=== PATIENT | male | born 1960 | race Caucasian/White ===

== ENCOUNTER 2017-09-07 15:28 | Emergency (ER) | payer MEDICAID, MEDICARE ==
[~2017-09-07] VITALS: Ht 167.6 cm; Wt 119.0 kg
[2017-09-07 15:32] VITALS: Ht 167.6 cm; Wt 119.0 kg
[2017-09-07] MEDS ORDERED: ONDANSETRON (ODT) 4 MG TAB ODT STA (16:48)
[2017-09-07] MEDS ORDERED: ACETAMINOPHEN 500 MG TAB PO STA (16:48)
--- NOTE | 2017-09-07 16:54 | ERD ---
ER Documentation Chief Complaint Chief Complaint fever , headcahe , cough x 2 days HPI This is a 56-year-old male who presents the emergency department today complaining of headache, watery eyes, sore throat, body aches, vomiting and cough for the past 2 days. States that he took ibuprofen at 10 AM. States he does not have a primary care doctor and does not know if he has any medical problems. Denies any chest pain, shortness of breath or abdominal pain. ROS All systems reviewed and are negative except as per history of present illness. Allergies Allergies: Coded Allergies: No Known Allergy (Unverified , 09/07/17) PMhx/Soc Medical and Surgical Hx: pt denies Medical Hx History of Surgery: Yes (Rt. Knee) Anesthesia Reaction: No Hx Neurological Disorder: No Hx Respiratory Disorders: No Hx Cardiac Disorders: No Hx Psychiatric Problems: No Hx Miscellaneous Medical Probl: No Hx Alcohol Use: No Hx Substance Use: No Hx Tobacco Use: No Smoking Status: Never smoker Physical Exam Vitals Vital Signs Date Time Temp Pulse Resp B/P Pulse Ox O2 Delivery O2 Flow Rate FiO2 09/07/17 15:32 101.0 89 18 134/69 99 Physical Exam Const: obese, NAD Head: Atraumatic Eyes: Normal Conjunctiva,. PERRLA. EOM intact. ENT: Ears TMs normal. Nose no drainage. Throat no erythema no exudate no vesicles Neck: Full range of motion..~ No meningismus. Resp: Clear to auscultation bilaterally Cardio: Regular rate and rhythm, no murmurs Abd: Soft, non tender, non distended. Normal bowel sounds Skin: No petechiae or rashes Back: No midline or flank tenderness Ext: No cyanosis, or edema Neur: Awake and alert cranial nerves II through XII intact. No gait ataxia. Psych: Normal Mood and Affect Result Diagram: 09/07/17194409/07/171944 Results 24 hrs Laboratory Tests Test 09/07/17 19:45 White Blood Count 8.310^3/ul Red Blood Count 4.9310^6/ul Hemoglobin 14.2g/dl Hematocrit 42.8% Mean Corpuscular Volume 86.8fl Mean Corpuscular Hemoglobin 28.8pg Mean Corpuscular Hemoglobin Concent 33.2g/dl Red Cell Distribution Width 14.9% Platelet Count 11838^3/UL Mean Platelet Volume 9.3fl Neutrophils % 76.9% Lymphocytes % 12.4% Monocytes % 9.8% Eosinophils % 0.5% Basophils % 0.2% Nucleated Red Blood Cells % 0.0/100WBC Neutrophils # 6.310^3/ul Lymphocytes # 1.010^3/ul Monocytes # 0.810^3/ul Eosinophils # 0.010^3/ul Basophils # 0.010^3/ul Nucleated Red Blood Cells # 0.010^3/ul Sodium Level 141mmol/L Potassium Level 4.5mmol/L Chloride Level 101mmol/L Carbon Dioxide Level 27mmol/L Anion Gap 18 Blood Urea Nitrogen 19mg/dl Creatinine 1.18mg/dl Glucose Level 110mg/dl Calcium Level 9.1mg/dl Total Bilirubin 0.1mg/dl Direct Bilirubin 0.00mg/dl Indirect Bilirubin 0.1mg/dl Aspartate Amino Transf (AST/SGOT) 71IU/L Alanine Aminotransferase (ALT/SGPT) 64IU/L Alkaline Phosphatase 86IU/L Total Protein 8.3g/dl Albumin 4.3g/dl Globulin 4.00g/dl Albumin/Globulin Ratio 1.07 Current Medications Medications (Trade) Dose Ordered Sig/Luz Route PRN Reason Start Time Stop Time Status Last Admin Dose Admin Acetaminophen (Tylenol Tab) 500 mg ONCE STAT PO 09/07/17 16:48 09/07/17 16:49 DC 09/07/17 16:53 Ondansetron HCl 4 mg 4 mg ONCE STAT ODT 09/07/17 16:48 09/07/17 16:49 DC 09/07/17 16:53 Sodium Chloride (NS) 1,000 ml @ 1,000 mls/hr Q1H ONCE IV 09/07/17 19:00 09/07/17 19:59 DC 09/07/17 19:55 Ondansetron HCl (Zofran Inj) 4 mg ONCE STAT IV 09/07/17 18:49 09/07/17 18:50 DC 09/07/17 19:54 Ketorolac Tromethamine (Toradol) 30 mg ONCE STAT IV 09/07/17 19:09 09/07/17 19:10 DC 09/07/17 19:54 DIAGNOSTIC IMAGING REPORT Patient: THERESA DOUGLAS : 1960 Age: 56 Sex: M MR #: [id number] [facility] #: [id number] DOS: 09/07/17 0000 Ordering MD: CARLOS POP PA-C Location: [facility] Room/Bed: PROCEDURE: CT Brain without contrast. CLINICAL INDICATION: Headache TECHNIQUE: A CT of the brain was performed on a multidetector CT scanner utilizing axial imaging from the skull base through the vertex without IV contrast. Images were reviewed on a PACS workstation. The CTDIvol is 43 mGy and the DLP is the 720 mGycm. DICOM images are available. One or more of the following dose reduction techniques were utilized: 1.) Automated exposure control 2.) Adjustment of the mA +/- kV according to patient's size 3.) Use of iterative reconstruction technique. COMPARISON: None FINDINGS: There is no intracranial hemorrhage, mass effect, or midline shift. No extra- axial fluid collection is seen. The ventricles and sulci are normal in size and configuration. The density of the brain is normal, and the casper white matter differentiation appears well-preserved. The visualized paranasal sinuses and osseous structures are grossly unremarkable. IMPRESSION: 1. No evidence of acute intracranial pathology. 2. The brain is normal in appearance. .Andreas Hickman MD, MD Date Time Electronically viewed and signed by .Andreas Hickman MD, on 09/07/2017 19: 07 .A/ CC: CARLOS POP PA-C Procedures/MDM This is a 56-year-old male presents emergency department today complaining of flulike symptoms however given patient's age fever of 101 at intake and complaints of cough I did obtain a chest x-ray and influenza swab Chest x-ray is normal. Low suspicion for pneumonia, PE, abscess, pleural effusion, pneumothorax Influenza A and B is negative Patient was given Tylenol, Zofran here in the emergency department. I did go to check on the patient to see how he was feeling and he stated that he still felt nauseated and his headache was worse. Given patient's age and complaints of persistent headaches despite medication I did obtain a head CT. CT noncontrast shows no evidence of acute intracranial pathology. Pain brain is normal in appearance. There is no intracranial hemorrhage, mass-effect or midline shift. Patient was then given Toradol and IV fluids and I also obtain laboratory work. Laboratory workup shows no elevated white blood cell count. He is not anemic. Platelets are within normal limits. Electrolytes are within normal limits. Omari is within normal limits. Liver enzymes are within normal limits. Patient symptoms at this time is consistent with flulike symptoms. Patient will be given a prescription to treat his symptoms. When I went to check back on the patient he reported that his headache was gone and he felt significantly better. Patient will be given a prescription for Naprosyn, Tylenol, Robitussin CARLOS POP PA-C Sep 07, 2017 16:54
--- NOTE | 2017-09-07 17:30 | RADRPT ---
PROCEDURE: XR Chest. CLINICAL INDICATION: Cough and fever. TECHNIQUE: Single frontal view. COMPARISON: None. FINDINGS: The lungs are clear. The heart size is normal. There is no pleural effusion. There is no pneumothorax. IMPRESSION: 1. Normal chest radiograph. RPTAT: QQ .Hao Coley MD, Date Time Electronically viewed and signed by .Hao Coley MD, on 09/07/2017 17:29 .R/
[2017-09-07] MEDS ORDERED: ONDANSETRON 4 MG INJ IV STA (18:49)
[2017-09-07] MEDS ORDERED: SOD CHLORIDE 0.9% 1,000 ML IV ONE (19:00)
--- NOTE | 2017-09-07 19:07 | RADRPT ---
PROCEDURE: CT Brain without contrast. CLINICAL INDICATION: Headache TECHNIQUE: A CT of the brain was performed on a multidetector CT scanner utilizing axial imaging f rom the skull base through the vertex without IV contrast. Images were reviewed on a PACS workstati on. The CTDIvol is 43 mGy and the DLP is the 720 mGycm. DICOM images are available. One or more of the following dose reduction techniques were utilized: 1.) Automated exposure control 2.) Adjustment of the mA +/- kV according to patient's size 3.) Use of iterative reconstruction technique. COMPARISON: None FINDINGS: There is no intracranial hemorrhage, mass effect, or midline shift. No extra-axial fluid collection is seen. The ventricles and sulci are normal in size and configuration. The density of the brain is normal, and the casper white matter differentiation appears well-preserved. The visualized paranasal sinuses and osseous structures are grossly unremarkable. IMPRESSION: 1. No evidence of acute intracranial pathology. 2. The brain is normal in appearance. .Andreas Hickman MD, MD Date Time Electronically viewed and signed by .Andreas Hickman MD, on 09/07/2017 19:07 .A/
[2017-09-07] MEDS ORDERED: KETOROLAC 30 MG INJ IV STA (19:09)
[2017-09-07 19:50] LABS: BASOPHILS % 0.2 % (0.0-2.0); EOSINOPHILS % 0.5 % (0.0-7.0); HEMATOCRIT 42.8 % (42.0-52.0); HEMOGLOBIN 14.2 g/dl (14.0-18.0); LYMPHOCYTES % 12.4 % (15.0-51.0); MEAN CORPUSCULAR HEMOGLOBIN 28.8 pg (29.0-33.0); MEAN CORPUSCULAR HGB CONC 33.2 g/dl (32.0-37.0); MEAN CORPUSCULAR VOLUME 86.8 fl (82.0-101.0); MEAN PLATELET VOLUME 9.3 fl (7.4-10.4); MONOCYTE # 0.8 10^3/ul (0.3-0.9); MONOCYTES % 9.8 % (0.0-11.0); NEUTROPHIL # 6.3 10^3/ul (1.6-7.5); NEUTROPHILS % 76.9 % (39.0-77.0); PLATELET COUNT 180 10^3/UL (140-415); RED BLOOD COUNT 4.93 10^6/ul (4.70-6.10); RED CELL DISTRIBUTION WIDTH 14.9 % (11.5-14.5); WHITE BLOOD COUNT 8.3 10^3/ul (4.8-10.8)
[2017-09-07 20:11] LABS: ALBUMIN 4.3 g/dl (3.3-4.9); ALBUMIN/GLOBULIN RATIO 1.07; BILIRUBIN,INDIRECT 0.1 mg/dl (0-1.1); BILIRUBIN,TOTAL 0.1 mg/dl (0.2-1.3); CALCIUM 9.1 mg/dl (8.4-10.2); CREATININE 1.18 mg/dl (0.61-1.24); POTASSIUM 4.5 mmol/L (3.5-5.1); TOTAL PROTEIN 8.3 g/dl (6.1-8.1)
[2017-09-07] MEDS ORDERED: NAPR-260 PO (20:46)
[2017-09-07] MEDS ORDERED: ACET500C5 PO (20:47)
[2017-09-07] MEDS ORDERED: ONDA4TAB8 PO (20:47)
[2017-09-07] MEDS ORDERED: UDROBDM PO (20:47)
[2017-09-07 21:18] VITALS: BP 153/75; PULSE 82; RESP 20; TEMP 98.2
== END 2017-09-07 21:19 | disposition home or self-care (01) ==
LOC: FTE 15:28
DX: R51 Headache (principal); R50.9 Fever, unspecified; R05 Cough; J02.9 Acute pharyngitis, unspecified; R11.10 Vomiting, unspecified
CPT/HCPCS: 36415; 70450; 71010; 80053; 85025; 87400; 96361; 96374; 96375; J1885; J2405; J7030; Z7502; Z7610